=== PATIENT | female | born 1960 | race Caucasian/White ===

== ENCOUNTER 2016-04-03 12:47 | Day surgery (SDC) | payer OTHER ==
[~2016-04-03] VITALS: Ht 172.7 cm; Wt 68.1 kg
[2016-04-03 13:22] VITALS: Ht 172.7 cm; Wt 68.1 kg
[2016-04-03] MEDS ORDERED: acid reducer (13:46)
[2016-04-03] MEDS ORDERED: FLUO20CA38 PO (13:46)
[2016-04-03] MEDS ORDERED: FENTAnyl 50 MCG/ML VIAL ONE (14:44)
[2016-04-03] MEDS ORDERED: PROPOFOL 40 ML ONE (14:44)
[2016-04-03] MEDS ORDERED: MIDAZOLAM 1 MG/ML 2 ML INJ ONE (14:44)
[2016-04-03 14:46] VITALS: BP 132/60; PULSE 70; RESP 18
[2016-04-03 16:15] VITALS: BP 125/57; PULSE 67; RESP 20
--- NOTE | 2016-04-03 23:29 | GILP ---
DATE OF PROCEDURE: 04/03/2016 DATE: 04/03/2016 NAME OF PROCEDURE: Esophagogastroduodenoscopy with biopsies. SURGEON: Lakesha Madrigal MD. HISTORY AND INDICATIONS: The patient is being evaluated for abdominal pain. PREMEDICATION: Monitored anesthesia care by anesthesiologist. INSTRUMENT USED: Olympus panendoscope. TECHNIQUE: After informed consent, with the patient/relatives understanding the procedure, its indic ations, potential risks, and complications, including but not limited to: allergic reaction, bleedin g, perforation or infection, and after all pertinent questions were answered to the patient's satisf action, the patient/relatives signed witnessed informed consent. Following this, premedication was administered slowly IV push under careful cardiovascular and respi ratory monitoring with pulse oximetry, automatic blood pressure and monogram and letter paster. Once the sedative effect was achieved the patient was place in the left lateral decubitus, the panen doscope was introduced and advanced under visual control. Careful examination of the upper gastrointestinal tract, both on insertion as well as withdrawal of the instrument disclosed the following findings: ESOPHAGUS: The distal esophagus shows erythema and edema of the mucosa of a moderate degree. There is also trachealization of the esophagus raising the possibility of eosinophilic esophagitis. Biop sies were obtained of the distal third of the esophagus. STOMACH: Upon entrance to the stomach, air was insufflated, the gastric dunn distended normally. The mucosa of the fundus, body and antrum of the stomach was carefully examined, shows erythema and edema of the mucosa of a moderate degree. Biopsies were obtained to rule out H. pylori infection. PYLORUS: The pylorus appears patent and within normal limits, with no evidence of gastric outlet ob struction. DUODENUM: The duodenal mucosa was carefully examined in the duodenal bulb as well as the second por tion of the duodenum and appears unremarkable with no evidence of duodenitis, ulcer, or neoplasm. The instrument was then withdrawn, the patient tolerated the procedure well and was transfer out of the endoscopy suite awake, and in good condition to continue recovery under observation IMPRESSION: 1. Rule out eosinophilic esophagitis. 2. Distal erosive esophagitis. 3. Gastritis, moderate. Rule out Helicobacter pylori infection, biopsies obtained. PLAN: The patient will be treated with PPIs. Further recommendation will depend on her clinical co urse as well as review of biopsies. Dictated By: LAKESHA MADRIGAL MS/NTS Conf#: [id number] DID#: [id number] CC: LAKESHA MADRIGAL;*[facility]*
--- NOTE | 2016-04-03 23:32 | GILP ---
DATE OF PROCEDURE: NAME OF PROCEDURE: Colonoscopy to cecum. SURGEON: Lakesha Madrigal MD. PREOPERATIVE DIAGNOSIS(ES) POSTOPERATIVE DIAGNOSIS(ES) BRIEF HISTORY AND INDICATIONS: The patient here for colorectal cancer screening. PREMEDICATION: Monitored anesthesia care by anesthesiologist. INSTRUMENT USED: Olympus colonoscope. PREPARATION: Adequate. TECHNIQUE: After informed consent, with the patient/relatives understanding the procedure, its indic ations potential risks and complications, including but not limited to: allergic reaction, bleeding, perforation, infection, missed lesions and after all pertinent questions were answered to the patie nt's satisfaction, the patient/relatives signed the witnessed informed consent. Following this, premedication was administered slowly IV push by under careful cardiovascular and re spiratory monitoring with pulse oximetry, automatic blood pressure and field marketing specialist. Once the sedativ e effect was achieved, the patient was placed in the left lateral decubitus position, digital rectal examination was performed. The colonoscope was then introduced and advanced under visual control th roughout all segments of the colon including: the rectum, sigmoid, descending colon, splenic flexure , transverse colon, hepatic flexure, ascending colon and finally reaching the cecum which was clearl y identified by transillumination, finger indentation and the ileocecal valve. Careful examination o f the mucosa of the lower gastrointestinal tract both on insertion as well as withdrawal of the inst rument disclosed the following findings: Rectal Examination: Showed small external hemorrhoids. Otherwise, no evidence of perianal pathology . Colonic Mucosa: The colonic mucosa entirely unremarkable throughout. The ileocecal valve was clearl y identified and appears unremarkable. The instrument was withdrawn reexamining the mucosa in detai l. No additional abnormalities are noted with exception of moderate sized internal hemorrhoids. The instrument was then withdrawn, the patient tolerated the procedure well and was transferred out of the Endoscopy Suite awake and in good condition to continue recovery under observation. IMPRESSION: Moderate sized internal hemorrhoids, otherwise normal colonoscopy to cecum. RECOMMENDATIONS: The patient will follow up as an outpatient. Further recommendation will depend o n her clinical course as well as review of biopsies. Dictated By: LAKESHA MADRIGAL MS/MYNOR Conf#: [id number] DID#: [id number] CC: Lakesha Madrigal;*[facility]*
== END 2016-04-03 16:35 | disposition home or self-care (01) ==
LOC: GIL 12:47
PROVIDERS: ATTEND Internal Medicine Gastroenterology
DX: Z12.11 Encounter for screening for malignant neoplasm of colon (principal); K64.8 Other hemorrhoids; K20.8 Other esophagitis; K29.60 Other gastritis without bleeding; F41.9 Anxiety disorder, unspecified
CPT/HCPCS: 43239; 45378; 88305; 88312; J2250; J3010; Z7610; 88313